=== PATIENT | female | born 1965 | race African-American/Black ===

== ENCOUNTER 2017-03-31 20:06 | Emergency (ER) | payer OTHER | END 2017-03-31 21:27 | disposition home or self-care (01) | LOC: SCSER 20:06 | DX: J06.9 Acute upper respiratory infection, unspecified (principal); E11.9 Type 2 diabetes mellitus without complications; E78.5 Hyperlipidemia, unspecified; I10 Essential (primary) hypertension; Z79.899 Other long term (current) drug therapy; Z79.84 Long term (current) use of oral hypoglycemic drugs | CPT/HCPCS: 99282 ==

== ENCOUNTER 2017-09-27 08:43 | Outpatient (CLI) | payer OTHER ==
--- NOTE | 2017-09-27 12:15 | MRI ---
MRI LUMBAR SPINE WITH AND WITHOUT CONTRAST: DATE: 09/27/17. HISTORY: A 51-year-old female with M96.1, post laminectomy syndrome. COMPARISON: No prior MRIs. TECHNIQUE: Multiple sequences obtained in axial and sagittal planes, pre and post IV injection of gadolinium-bas ed contrast agent: 20 mL of MultiHance. FINDINGS: There are 5 lumbar-type vertebrae. Vertebral body heights are maintained. T10-11: There is moderate to severe disk space narrowing and a shallow central and bilateral paracent ral disk-osteophyte complex which encroaches upon the anterior aspect of the spinal canal. It causes at least mild central spinal canal stenosis. This level is only imaged on the sagittal sequences. No tunde cord impingement. No high-grade neural foraminal stenosis. T12-L1: Normal. L1-2: Normal. Conus medullaris terminates at lower L1 level. L2-3: Normal. L3-4: Normal. L4-5: Normal. L5-S1: Interbody graft material. Anterior metallic plate and screws cause magnetic susceptibility a rtifact. Extensive T2 hyperintense material at the posterior aspect of the disk, representing either large posterior annular tear/fissure and/or postsurgical change. This is also mixed with moderately hyperintense T1 signal making it difficult to evaluate for enhancement here. Diffuse disk bulge. N o central spinal canal stenosis. The disk bulge encroaches upon the bilateral neural foramina, abutt ing the undersurfaces of the bilateral exiting L5 nerve roots, without significantly displacing them. Overall mild to moderate bilateral neural foraminal stenosis. No central stenosis. No high-grade degenerative facet changes. No laminectomy defect identified. IMPRESSION: 1. Status post anterior lumbar interbody fusion at L5-S1. 2. Mild to moderate bilateral neural foraminal stenosis at L5-S1, but no central stenosis. 3. All of the rest of the lumbar spine, from T11-12 through L4-5, are normal. 4. Mild to moderate degenerative disk disease at T10-11. FRANCESCA [place] POS: AMARILYS
[2017-09-27] MEDS ORDERED: Gadobenate Dimeglumine 529 MG/1 ML (20ML VIAL) ONE (12:55)
== END 2017-09-27 08:44 | disposition home or self-care (01) ==
LOC: MRI 08:43
PROVIDERS: ATTEND Nurse Practitioner Family
DX: M96.1 Postlaminectomy syndrome, not elsewhere classified (principal); M48.07 Spinal stenosis, lumbosacral region; M51.34 Other intervertebral disc degeneration, thoracic region; Z98.1 Arthrodesis status
CPT/HCPCS: 72158; A9579

== ENCOUNTER 2018-03-26 09:32 | Outpatient (CLI) | payer OTHER ==
--- NOTE | 2018-03-26 15:38 | NM ---
RADIONUCLIDE PARATHYROID SCAN WITH PLANAR AND SPECT CT IMAGES: HISTORY: Hyperparathyroidism, unspecified. Serum PTH level on 03/15/2018 measured 130.2 pg/mL (normal 19.8-88 .0). RADIOPHARMACEUTICAL: Technetium 99m sestamibi, 27.5 millicuries, injected intravenously. FINDINGS: There is physiologic activity in the salivary glands, thyroid gland, and the visualized portions of t he heart. Increased uptake in the left axilla is likely due to tracer extravasation at the site of i njection in the left upper extremity. There is a focal area of persistently increased uptake in the left side of the neck, posterior to the left lobe of the thyroid gland, consistent with a parathyroid adenoma. IMPRESSION: Left parathyroid adenoma. POS: AMARILYS
== END 2018-03-26 09:33 | disposition home or self-care (01) ==
LOC: NM 09:32
PROVIDERS: ATTEND Family Medicine
DX: E21.3 Hyperparathyroidism, unspecified (principal); D35.1 Benign neoplasm of parathyroid gland
CPT/HCPCS: 78072; A9500

== ENCOUNTER 2018-05-28 15:10 | Outpatient (CLI) | payer OTHER | END 2018-05-28 15:11 | disposition home or self-care (01) | LOC: BICMAMMO 15:10 | PROVIDERS: ATTEND Family Medicine | DX: Z12.31 Encounter for screening mammogram for malignant neoplasm of breast (principal); Z80.3 Family history of malignant neoplasm of breast | CPT/HCPCS: 77063; 77067 ==

== ENCOUNTER 2018-05-31 07:25 | Day surgery (SDC) | payer OTHER ==
[2018-05-30 13:39] VITALS: BMI 38.9
[2018-05-31 08:26] LABS: Hemoglobin 12.7 g/dL (12.0-16.0)
[2018-05-31 08:49] LABS: Anion Gap 10 mmol/L (10-20); BUN (Urea Nitrogen) 13 mg/dL (9.8-20.1); Calc. Creatinine Clearance 135 mL/min (70-130); Calcium 11.1 mg/dL (7.8-10.44); Carbon Dioxide 26 mmol/L (22-29); Chloride 108 mmol/L (98-107); Estimated GFR-MDRD 90; Glucose 131 mg/dL (70-105); Potassium 3.9 mmol/L (3.5-5.1); Sodium 140 mmol/L (136-145)
[2018-05-31] MEDS ORDERED: Lidocaine 1% w/Epinephrine 1:100K 30 ML VIAL ONE (09:51)
[2018-05-31] MEDS ORDERED: Fentanyl 100 MCG/2 ML VIAL ONE ×3 (09:52→13:16)
[2018-05-31] MEDS ORDERED: Midazolam HCl 2 mg/2 ml Vial ONE (09:58)
[2018-05-31] MEDS ORDERED: Fentanyl 250 MCG/5 ML VIAL ONE (10:42)
[2018-05-31] MEDS ORDERED: Propofol 1,000 MG/100 ML VIAL IV ONE (10:44)
[2018-05-31] MEDS ORDERED: ePHEDrine/0.9% NaCl/PF SYRINGE 50 mg/10 ml ONE (11:48)
[2018-05-31] MEDS ORDERED: Ondansetron PF 4 MG/2 ML Vial ONE (11:48)
[2018-05-31] MEDS ORDERED: Succinylcholine Chloride 20 MG/ML 10 ml SYRINGE FS ONE (11:48)
[2018-05-31] MEDS ORDERED: PHENYLEPHRINE-NS 100 MCG/ML 10 ML SYRINGE ONE (11:48)
[2018-05-31] MEDS ORDERED: PROPOFOL 200 MG/20 ML VIAL ONE (11:48)
[2018-05-31] MEDS ORDERED: Lidocaine 1% PF 5 ML VIAL ONE (11:48)
--- NOTE | 2018-05-31 14:32 | EKG ---
Test Reason : PREOP Blood Pressure : / mmHG Vent. Rate : 059 BPM Atrial Rate : 059 BPM P-R Int : 134 ms QRS Dur : 098 ms QT Int : 402 ms P-R-T Axes : 039 -36 001 degrees QTc Int : 397 ms Sinus bradycardia Left axis deviation Abnormal ECG When compared with ECG of 30-JAN-2017 12:26, No significant change was found Confirmed by DASHA TERESA, SFabrice ([id number]) on 05/31/2018 2:31:45 PM Referred By: KIARA Confirmed By:DR. Shekhar LOU MD
[2018-05-31] MEDS ORDERED: Hydrocodone-Acetamin 15 ML UDCUP ONE (16:10)
[2018-05-31] MEDS ORDERED: Ondansetron ODT 4 MG TAB ONE (18:02)
--- NOTE | 2018-05-31 23:08 | OP ---
DATE OF PROCEDURE: 05/31/2018 PREOPERATIVE DIAGNOSIS: Primary hyperparathyroidism. POSTOPERATIVE DIAGNOSES: Primary hyperthyroidism, parathyroid adenoma. PROCEDURES PERFORMED: Excision of left parathyroid adenoma, parathyroidectomy using laryngeal nerve monitor. DESCRIPTION OF PROCEDURE: After consent was obtained, the patient was identified and brought to the operating room and placed in the operating table in supine position. General endotracheal anesthesia was obtained with laryngeal nerve monitoring endotracheal tube and the patient was positioned for surgery. The area to be incised was infiltrated with 1% lidocaine with 1:100,000 epinephrine. An incision was made through the skin and subcutaneous tissues down to the level of the platysma, which was then transected and inferior and superior subplatysmal flaps were elevated. A self-retaining retractor was put in place and the strap muscles were divided. We then turned our attention to the left thyroid lobe, which was dissected from the surrounding tissues with middle thyroid vein also released and suture ligated. This allowed for reflection of thyroid medially as we were dissecting the tracheoesophageal groove. Ultimately, we did find in fact a very large parathyroid adenoma which was sent for histologic evaluation; it was confirmed to be parathyroid tissue and weighed over 2 g. We then turned our attention to obtaining hemostasis and closing the wound. Fibrillar Surgicel was placed in the deep aspect of the wound and the tissues were closed with absorbable Monocryl suture of both strap muscles as well as the platysma. The skin was closed with a running Prolene suture and sterile dressings were applied. The patient was awakened and taken to the recovery room in stable condition prior to discharge home. Job ID: [id number]
== END 2018-05-31 18:10 | disposition home or self-care (01) ==
LOC: SDC 07:25
PROVIDERS: ATTEND Specialist
PROC: 0GBR0ZZ Excision of Parathyroid Gland, Open Approach (ICD-10-PCS; principal; 2018-05-31)
DX: D35.1 Benign neoplasm of parathyroid gland (principal); I10 Essential (primary) hypertension; K21.9 Gastro-esophageal reflux disease without esophagitis; E66.01 Morbid (severe) obesity due to excess calories; E11.9 Type 2 diabetes mellitus without complications; Z79.84 Long term (current) use of oral hypoglycemic drugs; Z79.899 Other long term (current) drug therapy
CPT/HCPCS: 36415; 36416; 80048; 85014; 85018; 88305; 88331; 88334; 93005; 93010; 96374; J2001; J2250; J2405; J2704; J3010; Q0162

== ENCOUNTER 2019-02-20 15:30 | Outpatient (CLI) | payer OTHER ==
--- NOTE | 2019-02-20 17:07 | MRI ---
MRI LUMBAR SPINE NONCONTRAST: DATE: 02/20/2019 HISTORY: 53-year-old female with low back pain with left lumbar radiculopathy. COMPARISON: 09/27/2017 FINDINGS: Vertebral body heights are maintained. Other than the obscuring of bone marrow signal at L5-S1 due to metallic hardware causing magnetic susceptibility artifact, the bone marrow signal in all other levels is normal. Conus medullaris terminates at L1-2. Cauda equina is arranged in a symmetrical, nor mal distribution throughout the thecal sac. There is no central spinal canal stenosis at any level. T12-L1:Normal L1-2:Normal L2-3:Normal L3-4:Normal L4-5:Interval progression of disc desiccation. Disc space maintained. Minimal disc bulge. Mild bilate ral degenerative facet changes. No central or neural foraminal stenosis. L5-S1:No central stenosis. Metallic material within the disc space plus anterior metallic plate and s crews in the prevertebral space. Interbody graft material or disc bulge encroaches upon bilateral neural foramina, indenting the under surfaces of the bilateral exiting L5 nerve roots. Overall mild t o moderate bilateral neural foraminal stenosis. Heterogeneous signal abnormality including both T1 hyperintensity and T2 hyperintensity of the posterior aspect of disc space is unchanged. IMPRESSION: 1) status post anterior lumbar interbody fusion at L5-S1. 2) mild to moderate bilateral neural foraminal stenosis at L5-S1 but no central stenosis. 3) all the rest of the lumbar spine, from T12-L1 through L4-5, are normal. The spinal canal and theca l sac are capacious throughout all levels. 4) no interval change.
== END 2019-02-20 15:31 | disposition home or self-care (01) ==
LOC: BICMRI 15:30
PROVIDERS: ATTEND Family Medicine
DX: M54.16 Radiculopathy, lumbar region (principal); M48.061 Spinal stenosis, lumbar region without neurogenic claudication; Z98.1 Arthrodesis status
CPT/HCPCS: 72148

== ENCOUNTER 2020-11-16 15:29 | Outpatient (CLI) | payer OTHER | END 2020-11-16 15:30 | disposition home or self-care (01) | LOC: BICMAMMO 15:29 | PROVIDERS: ATTEND Family Medicine | DX: Z12.31 Encounter for screening mammogram for malignant neoplasm of breast (principal); Z80.3 Family history of malignant neoplasm of breast | CPT/HCPCS: 77063; 77067 ==

== ENCOUNTER 2020-12-23 17:30 | Outpatient (CLI) | payer OTHER | END 2020-12-23 17:31 | disposition home or self-care (01) | LOC: SLEEPLAB 17:30 | PROVIDERS: ATTEND Family Medicine | DX: G47.33 Obstructive sleep apnea (adult) (pediatric) (principal); R06.83 Snoring; K21.9 Gastro-esophageal reflux disease without esophagitis; I10 Essential (primary) hypertension; E11.9 Type 2 diabetes mellitus without complications; G47.00 Insomnia, unspecified; E66.9 Obesity, unspecified; Z68.41 Body mass index [BMI] 40.0-44.9, adult | CPT/HCPCS: 95806 ==

== ENCOUNTER 2021-12-28 14:02 | Outpatient (CLI) | payer OTHER ==
[~2021-12-28 14:02] MED LIST: Magnevist 469MG/ML 20 ML VIAL ONE
== END 2021-12-28 14:03 | disposition home or self-care (01) ==
LOC: TBSIIMAG 14:02
PROVIDERS: ATTEND Specialist
DX: M47.26 Other spondylosis with radiculopathy, lumbar region (principal); Z98.1 Arthrodesis status; M48.07 Spinal stenosis, lumbosacral region
CPT/HCPCS: 72158; A9579

== ENCOUNTER 2023-09-12 15:55 | Outpatient (CLI) | payer OTHER | END 2023-09-12 15:56 | disposition home or self-care (01) | LOC: BICMAMMO 15:55 | PROVIDERS: ATTEND Family Medicine | DX: Z12.31 Encounter for screening mammogram for malignant neoplasm of breast (principal); Z80.3 Family history of malignant neoplasm of breast | CPT/HCPCS: 77063; 77067 ==